=== PATIENT | female | born 1945 | race Hispanic/Latino ===

== ENCOUNTER 2020-07-08 15:29 | Emergency (ER) | payer MEDICARE ==
[~2020-07-08] VITALS: Ht 149.9 cm; Wt 77.1 kg
[2020-07-08] MEDS ORDERED: GLIPIZIDE10 MG PO (17:17)
[2020-07-08] MEDS ORDERED: WELLBUTRIN SR150 MG PO (17:17)
[2020-07-08] MEDS ORDERED: LISINOPRIL20 MG PO (17:18)
[2020-07-08] MEDS ORDERED: ROPINIROLE HCL2 MG PO (17:19)
[2020-07-08] MEDS ORDERED: ROSUVASTATIN CA20 MG PO (17:19)
[2020-07-08] MEDS ORDERED: PREGABALIN50 MG PO (17:19)
--- NOTE | 2020-07-08 19:41 | EKG ---
[facility] [address] [facility] [facility] [place] [address] Signed Normal sinus rhythm Nonspecific ST abnormality Prolonged QT Abnormal ECG No previous ECGs available Confirmed by MONICA AUGUSTIN MD ([id number] on 07/08/2020 7:41:09 PM Electronically Signed By: MONICA AUGUSTIN MD 07/08/201940 PATIENT NAME: MICHAEL BUITRAGO Electrocardiogram DATE OF : 47 PHYSICIAN: MONICA AUGUSTIN MD REPORT #: [id number] REPORT IS CONFIDENTIAL AND NOT TO BE RELEASED WITHOUT AUTHORIZATION
== END 2020-07-08 18:09 | disposition home or self-care (01) ==
LOC: ED 15:29
DX: E11.65 Type 2 diabetes mellitus with hyperglycemia (principal); E86.0 Dehydration; I10 Essential (primary) hypertension; Z79.899 Other long term (current) drug therapy
CPT/HCPCS: 80053; 81001; 82010; 82803; 84484; 85025; 93005; 93010; 96374; 99285-25; J1815; J7030